=== PATIENT | female | born 1990 | race Caucasian/White ===

== ENCOUNTER 2016-11-19 19:55 | Emergency (ER) | payer OTHER ==
[~2016-11-19] VITALS: Ht 167.6 cm; Wt 57.9 kg
[2016-11-19 21:27] VITALS: BP 119/84
== END 2016-11-19 21:28 | disposition home or self-care (01) ==
LOC: EME 19:55
DX: S93.402A Sprain of unspecified ligament of left ankle, initial encounter (principal); X58.XXXA Exposure to other specified factors, initial encounter
CPT/HCPCS: 73610; 99281; 99283